=== PATIENT | male | born 1960 | race Caucasian/White ===

== ENCOUNTER 2019-06-04 08:28 | Day surgery (SDC) | payer OTHER ==
[~2019-06-04] VITALS: Ht 167.6 cm; Wt 116.2 kg
[~2019-06-04 08:28] MED LIST: AMLODIPINE; FLOMAX; LOSARTAN
[2019-06-04 09:13] VITALS: Ht 167.6 cm; Wt 116.2 kg
[2019-06-04 09:35] VITALS: BP 151/78; PULSE 67; RESP 18
[2019-06-04] MEDS ORDERED: LIDOCAINE 2% (SDV) 5 ML INJ ONE (10:00)
[2019-06-04] MEDS ORDERED: PROPOFOL 200 MG INJ ONE (10:00)
[2019-06-04 10:24] VITALS: BP 120/68; RESP 20
== END 2019-06-04 14:05 | disposition home or self-care (01) ==
LOC: GIL 08:28
PROVIDERS: ATTEND Internal Medicine Gastroenterology
DX: R19.5 Other fecal abnormalities (principal); K64.8 Other hemorrhoids; I10 Essential (primary) hypertension
CPT/HCPCS: 45378; Z7610